=== PATIENT | female | born 1960 | race Asian ===

== ENCOUNTER 2016-07-03 10:35 | Outpatient (RCR) | payer BC ==
[2016-07-03 10:56] LABS: BILIRUBIN,URINE NEGATIVE (NEGATIVE); BLOOD, URINE 3+ (NEGATIVE); CLARITY/URINE HAZY (CLEAR); GLUCOSE,URINE NEGATIVE (NEGATIVE); KETONES,URINE NEGATIVE (NEGATIVE); LEUKOCYTE ESTERASE ,URINE NEGATIVE (NEGATIVE); NITRITE, URINE NEGATIVE (NEGATIVE); PROTEIN URINE 3+ (NEGATIVE); UROBILINOGEN,URINE 0.2 (0.2-1.0)
[2016-07-03 10:58] LABS: COLOR,URINE YELLOW (YELLOW)
[2016-07-03 11:03] LABS: RBC,URINE >100 /HPF (0-3)
[2016-07-03 11:04] LABS: BACTERIA,URINE FEW /HPF (None Seen)
== END 2016-07-19 | disposition home or self-care (01) ==
LOC: SLB 10:35
PROVIDERS: ATTEND Internal Medicine Cardiovascular Disease
DX: R31.9 Hematuria, unspecified (principal)
CPT/HCPCS: 81000-TC; 87086; 87186-TC